=== PATIENT | female | born 1955 | race Caucasian/White ===

== ENCOUNTER 2017-01-12 00:31 | Emergency (ER) | payer BC ==
[~2017-01-12] VITALS: Ht 157.5 cm; Wt 63.6 kg
[~2017-01-12 00:31] MED LIST: BUSPAR10 MG PO; CITRUS CALCIUM200 MG PO; CYMBALTA 30MG30 MG PO; CYMBALTA30 M1 PO; CYMBALTA60 M1 PO; FLEXERIL 1010 MG/TAB PO; LEVOXYL0.088 MG PO; NORCO 325 MG-51 TAB PO; SYNTHROID0.1 MG PO; TENORMIN 2525 MG/TAB PO; VALTREX 50500 MG/TAB PO; VITAMIN D32000 I1 PO; WELLBUTRIN SR150 M1 PO; [UNRECOGNIZED DRUG - OTHER]
[2017-01-12 00:32] VITALS: BP 133/72; PULSE 78; TEMP 97.7
[2017-01-12 01:11] LABS: BASO # 0.1 (0.0-0.2); BASO % 0.7 % (0.0-2.0); EOS # 0.1 (0.0-0.7); EOS % 0.6 % (0-4.0); GRAN # 10.9 (1.4-6.5); GRAN % 77.9 % (42.2-75.2); HEMATOCRIT 38.6 % (37.0-47.0); HEMOGLOBIN 13.3 g/dl (12.5-16.0); LYMPH % 14.5 % (20.0-51.0); MEAN CELL VOLUME 90 fl (80.0-100.0); MEAN CORPUSCULAR HEMOGLOBIN 31 pg (27.0-31.0); MEAN CORPUSCULAR HGB CONC 35 g/dl (33.0-37.0); MEAN PLATELET VOLUME 9.2 fl (7.4-10.4); MONO # 0.8 (0.1-0.6); MONO % 5.7 % (1.7-9.3); PLATELET COUNT 358 K/mm3 (130-400); RED BLOOD COUNT 4.31 M/mm3 (4.10-5.30); REDCELL DISTRIBUTION WIDTH-CV 12.7 % (11.5-14.5)
[2017-01-12 01:26] LABS: ADJUSTED CALCIUM 9.7 mg/dL (8.4-10.2); ALBUMIN 4.3 gm/dL (3.5-5.0); BILIRUBIN,TOTAL 0.8 mg/dL (0.0-1.0); CALCIUM 9.9 mg/dL (8.4-10.2); CREATININE, serum 0.73 mg/dL (0.52-1.25); POTASSIUM 3.8 mmol/L (3.4-5.0)
[2017-01-12 06:04] LABS: PH 7 (5-8); SQUAMOUS EPITHELIAL 0-2 /hpf; URINE APPEARANCE Clear; URINE BACTERIA None Seen /hpf; URINE BILIRUBIN Negative (NEGATIVE); URINE BLOOD Negative (NEGATIVE); URINE COLOR Yellow; URINE GLUCOSE Negative (NEGATIVE); URINE KETONE Trace (NEGATIVE); URINE RBC 0-2 /hpf; URINE UROBILINOGEN Negative (NEGATIVE)
== END 2017-01-12 06:14 | disposition home or self-care (01) ==
LOC: COL.ER 00:31
PROVIDERS: Emergency Medicine
DX: R10.31 Right lower quadrant pain (principal)
CPT/HCPCS: J1170; J1885; J2550; J7030; Q9967

== ENCOUNTER → 2017-07-13 | Outpatient (CLI) | payer BC | LOC: MC.RAD 07:00 | DX: Z12.31 Encounter for screening mammogram for malignant neoplasm of breast (principal) ==

== ENCOUNTER → 2018-09-13 | Outpatient (CLI) | payer BC | LOC: MC.RAD 08:34 | DX: Z12.31 Encounter for screening mammogram for malignant neoplasm of breast (principal) ==

== ENCOUNTER → 2020-11-05 | Outpatient (CLI) | payer BC | LOC: MC.RAD 16:49 | DX: Z12.31 Encounter for screening mammogram for malignant neoplasm of breast (principal) ==

== ENCOUNTER 2021-03-23 19:40 | Observation (INO) | payer BC ==
[~2021-03-23] VITALS: Ht 157.5 cm; Wt 63.0 kg
[~2021-03-23 19:40] MED LIST changes: +MASON NATURAL2000 IU PO; -VITAMIN D32000 I1 PO
[2021-03-23 20:28] LABS: BASO # 0.1 (0.0-0.2); BASO % 1.2 % (0.0-2.0); EOS % 0.4 % (0-4.0); GRAN # 6.5 (1.4-6.5); GRAN % 63.4 % (42.2-75.2); HEMATOCRIT 42.7 % (37.0-47.0); HEMOGLOBIN 14.2 g/dl (12.5-16.0); LYMPH # 2.8 (1.2-3.4); LYMPH % 26.8 % (20.0-51.0); MEAN CELL VOLUME 96 fl (80.0-100.0); MEAN CORPUSCULAR HEMOGLOBIN 32 pg (27.0-31.0); MEAN CORPUSCULAR HGB CONC 33 g/dl (33.0-37.0); MEAN PLATELET VOLUME 9.4 fl (7.4-10.4); MONO # 0.8 (0.1-0.6); MONO % 7.7 % (1.7-9.3); PLATELET COUNT 374 K/mm3 (130-400); RED BLOOD COUNT 4.46 M/mm3 (4.10-5.30); REDCELL DISTRIBUTION WIDTH-CV 13.8 % (11.5-14.5)
[2021-03-23 20:29] LABS: ALBUMIN 4.4 gm/dL (3.5-5.0); BILIRUBIN,TOTAL 0.4 mg/dL (0.0-1.0); CALCIUM 10.4 mg/dL (8.4-10.2); CREATININE, serum 0.8 (0.52-1.25); TOTAL PROTEIN 7.5 gm/dL (6.4-8.2)
[2021-03-23] MEDS ORDERED: VIIBRYD20 MG PO (20:41)
[2021-03-23] MEDS ORDERED: TOPROL XL 25MG25 MG PO (20:42)
[2021-03-23 20:44] LABS: TROPONIN-I 0.052 ng/mL (0.000-0.035)
[2021-03-23 20:59] LABS: INR 1.1 (0.8-3.0); PROTHROMBIN TIME 11.7 SECONDS (9.7-12.8)
[2021-03-23] MEDS ORDERED: SYNTHROID0.05 MG/TA PO (22:17)
--- NOTE | 2021-03-23 22:45 | NUR ---
Admitted to medical floor from ER- DX A-flutter, RVR, Converted in ER after Cardizem given, now in NSR rate 73/min. Tele on. Will be NPO after MN , ECHO IN THE am, Eating a sandwich at this time, VSS, IV fluids fo NS at 125cc/hr to right hand INT. Up to bathroon on own-steady on feet. Joyce PIERSON here to see patient
[2021-03-23 22:47] VITALS: BP 105/68; PULSE 67; TEMP 98.2
[2021-03-24 02:00] VITALS: BP 117/69; PULSE 72; TEMP 97.8
[2021-03-24 03:16] LABS: BASO # 0.1 (0.0-0.2); BASO % 1.1 % (0.0-2.0); EOS # 0.1 (0.0-0.7); GRAN # 4.8 (1.4-6.5); GRAN % 59.4 % (42.2-75.2); HEMATOCRIT 37.8 % (37.0-47.0); HEMOGLOBIN 12.7 g/dl (12.5-16.0); LYMPH # 2.4 (1.2-3.4); LYMPH % 29.7 % (20.0-51.0); MEAN CELL VOLUME 96 fl (80.0-100.0); MEAN CORPUSCULAR HEMOGLOBIN 32 pg (27.0-31.0); MEAN CORPUSCULAR HGB CONC 34 g/dl (33.0-37.0); MEAN PLATELET VOLUME 9.5 fl (7.4-10.4); MONO # 0.7 (0.1-0.6); MONO % 8.6 % (1.7-9.3); RED BLOOD COUNT 3.92 M/mm3 (4.10-5.30); REDCELL DISTRIBUTION WIDTH-CV 13.8 % (11.5-14.5)
[2021-03-24 03:17] LABS: PLATELET COUNT 260 K/mm3 (130-400)
[2021-03-24 03:32] LABS: CREATININE, serum 0.77 (0.52-1.25); MAGNESIUM 2.1 mg/dL (1.6-2.3); POTASSIUM 3.6 mmol/L (3.4-5.0)
[2021-03-24 05:41] VITALS: BP 116/65; PULSE 62; TEMP 97.9
--- NOTE | 2021-03-24 06:00 | NUR ---
Quiet night , Joyce aware of the troponins during the shift-- another troponin drawn this morning-- VSS, no palpitation/arrythmias , tele on- IV fluids completed as ordered, IV to INT
[2021-03-24 08:02] VITALS: BP 105/77; PULSE 72; TEMP 97.7
--- NOTE | 2021-03-24 10:38 | NUR ---
Filters Assembler met with patient to discuss dicharge planning. 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 Patient sees Dr. Hernandez for primary care and obtains medications where she works. Patient does not use any DME but states she has a walker from when she had knee surgery. Patient is independent with ADLS and plans to return home upon discharge. Patient states she has Advance Directives completed with an [employer] [place] attorney near [place], [place]. Discharge Plan: Home
[2021-03-24 11:41] VITALS: BP 131/68; PULSE 68; TEMP 97.3
[2021-03-24] MEDS ORDERED: TAMBOCOR50 MG PO (12:42)
[2021-03-28] MEDS ORDERED: TAMBOCOR50 MG PO (10:39)
[2021-03-28] MEDS ORDERED: TENORMIN 2525 MG/TAB PO (10:41)
== END 2021-03-24 13:57 | disposition home or self-care (01) ==
LOC: COL.ER 19:40 → MEDICAL 21:10
PROVIDERS: Nurse Practitioner Family; Nurse Practitioner Primary Care
DX: I48.92 Unspecified atrial flutter (principal); E03.9 Hypothyroidism, unspecified; F32.9 Major depressive disorder, single episode, unspecified; C44.92 Squamous cell carcinoma of skin, unspecified; I47.1 Supraventricular tachycardia; Z79.899 Other long term (current) drug therapy; I08.1 Rheumatic disorders of both mitral and tricuspid valves
CPT/HCPCS: G0378; J1650; J7030

== ENCOUNTER 2021-03-31 07:56 | Outpatient (CLI) | payer BC ==
[~2021-03-31] VITALS: Ht 157.5 cm; Wt 62.4 kg
[~2021-03-31 07:56] MED LIST changes: +SYNTHROID0.05 MG/TA PO; +TAMBOCOR50 MG PO; +TOPROL XL 25MG25 MG PO; +VIIBRYD20 MG PO
[2021-03-31 08:25] VITALS: BP 126/83; PULSE 60
[2021-03-31 09:15] VITALS: BP 121/71; PULSE 56; PULSE 58
--- NOTE | 2021-03-31 09:15 | NUR ---
Report from Seda DE LEON. Bandaid to middle low back small blood to dressing noted. VSS
[2021-03-31 09:30] VITALS: BP 120/68; PULSE 52
[2021-03-31 09:42] LABS: GLUCOSE,CSF 53 mg/dL (40-70); TOTAL PROTEIN,CSF 45 mg/dL (15-45)
[2021-03-31 09:45] VITALS: BP 120/75; PULSE 54
[2021-03-31 09:57] LABS: CSF APPEARANCE CLEAR; CSF COLOR COLORLESS; CSF MONONUCLEAR 100 % (70-100); CSF POLYMORPHONUCLEAR 0 % (0-6); CSF RBC < 1 /mm3 (0-0)
[2021-03-31 10:00] VITALS: BP 120/69; PULSE 54
[2021-03-31 10:15] VITALS: BP 112/70; PULSE 53
--- NOTE | 2021-03-31 10:15 | NUR ---
VSS. No complaints of pain. Discharge instructions given and transferred to [facility] car by ry
[2021-04-04 07:51] LABS: ALBUMIN CSF 93.2 mg/dL (<=27.0)
[2021-04-04 08:05] LABS: CSF IGG/ALBUMIN 0.11 (<=0.21); CSF,IGG 10.3 mg/dL (<=8.1)
[2021-04-04 08:13] LABS: CSF SYNTHESIS RATE 13.27 mg/24 h (<=12); CSF-IGG INDEX 0.61 (<=0.85); IGG/ALBUMIN SERUM 0.18 (<=0.40)
== END 2021-03-31 10:19 | disposition home or self-care (01) ==
LOC: COL.RAD 07:56
PROVIDERS: Psychiatry & Neurology Neurology
DX: R90.82 White matter disease, unspecified (principal)

== ENCOUNTER 2023-06-02 09:58 | Outpatient (CLI) | payer MEDICARE, BC ==
[~2023-06-02] VITALS: Ht 157.5 cm; Wt 52.8 kg
[2023-06-02] MEDS ORDERED: LAMICTAL150 MG PO (10:11)
== END 2023-06-02 10:55 | disposition home or self-care (01) ==
LOC: EUO 09:58
DX: M81.0 Age-related osteoporosis without current pathological fracture (principal)
CPT/HCPCS: J3111

== ENCOUNTER 2023-08-04 11:02 | Outpatient (RCR) | payer MEDICARE, BC ==
[~2023-08-04] VITALS: Ht 157.5 cm; Wt 55.4 kg
[~2023-08-04 11:02] MED LIST changes: +LAMICTAL150 MG PO; +NEURONTIN100 MG/CAP PO
[2023-08-04 11:26] VITALS: BP 121/78; PULSE 61; TEMP 98.6
== END 2023-08-04 11:33 | disposition home or self-care (01) ==
LOC: EUO 11:02
DX: M81.0 Age-related osteoporosis without current pathological fracture (principal)
CPT/HCPCS: J3111

== ENCOUNTER 2023-09-01 12:52 | Outpatient (CLI) | payer MEDICARE, BC ==
[2023-09-01 13:21] VITALS: BP 108/66; PULSE 97; TEMP 98.1
== END 2023-09-01 14:13 ==
LOC: EUO 12:52
DX: M81.0 Age-related osteoporosis without current pathological fracture (principal)
CPT/HCPCS: J3111

== ENCOUNTER 2023-10-01 12:50 | Outpatient (CLI) | payer MEDICARE, BC ==
[~2023-10-01] VITALS: Ht 157.5 cm; Wt 55.1 kg
[2023-10-01 13:00] VITALS: BP 110/69; PULSE 77; TEMP 98.5
[2023-10-01] MEDS ORDERED: VITAMIND3 5000 PO (13:05)
[2023-10-01] MEDS ORDERED: EVENITY (2210 MG/2.3 SQ (13:07)
--- NOTE | 2023-10-01 13:20 | NUR ---
Pt tolerated injections without issue. She exits dept with steady gait
== END 2023-10-01 13:20 | disposition home or self-care (01) ==
LOC: EUO 12:50
DX: M81.0 Age-related osteoporosis without current pathological fracture (principal)
CPT/HCPCS: J3111

== ENCOUNTER 2023-11-03 12:48 | Outpatient (CLI) | payer MEDICARE, BC ==
[~2023-11-03] VITALS: Ht 157.5 cm; Wt 55.9 kg
[~2023-11-03 12:48] MED LIST changes: +EVENITY (2210 MG/2.3 SQ; +VITAMIND3 5000 PO
[2023-11-03 12:53] VITALS: BP 131/76; PULSE 62; TEMP 97.7
[2023-11-03] MEDS ORDERED: Romosozumab-aqqg 210 MG/2.34 ML 2-Syringe KIT SQ ONE (13:00)
--- NOTE | 2023-11-03 13:06 | NUR ---
pt tolerated injection well and was free from acute concerns and complaints at time of discharge. pt vs remained within normal limits and pt ambulated independently to main lobby following procedure.
== END 2023-11-03 13:07 | disposition home or self-care (01) ==
LOC: EUO 12:48
DX: M81.0 Age-related osteoporosis without current pathological fracture (principal)
CPT/HCPCS: J3111

== ENCOUNTER 2023-12-01 09:07 | Outpatient (RCR) | payer MEDICARE, BC ==
[~2023-12-01] VITALS: Ht 157.5 cm; Wt 55.0 kg
[2023-12-01] MEDS ORDERED: Romosozumab-aqqg 210 MG/2.34 ML 2-Syringe KIT SQ ONE (09:15)
[2023-12-01 09:17] VITALS: BP 141/84; PULSE 58; TEMP 97.6
[2023-12-01] MEDS ORDERED: REVIA 50MG TABL50 MG PO (09:35)
== END 2023-12-01 11:18 | disposition home or self-care (01) ==
LOC: EUO 09:07
DX: M81.0 Age-related osteoporosis without current pathological fracture (principal)
CPT/HCPCS: J3111

== ENCOUNTER 2023-12-29 10:07 | Outpatient (CLI) | payer MEDICARE, BC ==
[~2023-12-29] VITALS: Ht 157.5 cm; Wt 55.9 kg
[~2023-12-29 10:07] MED LIST changes: +REVIA 50MG TABL50 MG PO
[2023-12-29] MEDS ORDERED: WELLBUTRIN SR100 M1 PO (10:15)
[2023-12-29] MEDS ORDERED: Romosozumab-aqqg 210 MG/2.34 ML 2-Syringe KIT SQ ONE (10:30)
[2023-12-29 10:37] VITALS: BP 122/73; PULSE 60; TEMP 97.9
== END 2023-12-30 10:34 ==
LOC: EUO 10:07
DX: M81.0 Age-related osteoporosis without current pathological fracture (principal)
CPT/HCPCS: J3111

== ENCOUNTER 2024-01-26 10:18 | Outpatient (CLI) | payer MEDICARE, BC ==
[~2024-01-26 10:18] MED LIST changes: +Romosozumab-aqqg 210 MG/2.34 ML 2-Syringe KIT SQ ONE; +WELLBUTRIN SR100 M1 PO
[2024-01-26 10:20] VITALS: BP 124/82; PULSE 65; TEMP 97.9
== END 2024-01-26 10:38 ==
LOC: EUO 10:18
DX: M81.0 Age-related osteoporosis without current pathological fracture (principal)
CPT/HCPCS: J3111